=== PATIENT | female | born 2000 | race Caucasian/White ===

== ENCOUNTER 2021-02-18 01:02 | Inpatient (IN) ==
[2021-02-18 01:46] LABS: Basophils % 0.2 %; Eosinophils % 0.1 %; Hematocrit 48.3 % (35.3-44.9); Hemoglobin 16.5 g/dL (11.5-15.4); Immature Granulocytes % 0.2 % (0-4); Lymphocytes # 2.2 K/mcL (0.6-4.6); Lymphocytes % 23.4 %; Mean Corpuscular HGB Conc 34.2 g/dL (31.6-35.5); Mean Corpuscular Hemoglobin 31.8 pg (28.0-33.3); Mean Corpuscular Volume 93.1 fL (83.0-100.0); Mean Platelet Volume 12.1 fL (9.4-12.4); Monocytes % 10.7 %; Neutrophils # 6.3 K/mcL (1.6-8.9); Platelet Count 282 K/mcL (140-400); Red Blood Count 5.19 M/mcL (3.82-4.97); Red Cell Distribution Width 12.3 % (11.5-14.5); Segmented Neutrophils % 65.4 %; White Blood Count 9.6 K/mcL (4.3-11.1)
[2021-02-18 01:47] LABS: Bilirubin,Urine Negative (Negative); Blood,Urine Trace (Negative); Clarity,Urine Clear (Clear); Color,Urine Colorless (Yellow); Glucose,Urine (UA) Normal (Normal); Ketones,Urine 10 mg/dL (Negative); Leukocyte Esterase,Urine Trace (Negative); Mucus,Urine Few per lpf (None-Few); Nitrite,Urine Negative (Negative); Protein,Urine Negative (Neg-Trace); RBC,Urine 0-3 per hpf (0-3); Squamous Epithelial Cell,Urine Few per hpf (None-Few); Urobilinogen,Urine Normal (Normal); WBC,Urine 0-3 per hpf (0-3)
[2021-02-18 01:56] LABS: Amphetamine Screen,Urine Positive ng/mL (Cutoff=1000); Barbiturate Screen,Urine Negative ng/mL (Cutoff=200); Benzodiazepines Screen,Urine Negative ng/mL (Cutoff=200); Cannabinoid Screen,Urine Negative ng/mL (Cutoff = 50); Cocaine Screen,Urine Negative ng/mL (Cutoff= 300); Opiate Screen,Urine Negative ng/mL (Cutoff=300); Phencyclidine Screen,Urine Negative ng/mL (Cutoff=25)
[2021-02-18 02:05] LABS: Acetaminophen < 10 mcg/mL (10-20); BUN/Creatinine Ratio 17 (6-26); Blood Urea Nitrogen 12 mg/dL (6-20); Carbon Dioxide 20 mEq/L (23-29); Chloride 105 mEq/L (98-107); Ethanol 48 mg/dL (Less than 10); Glucose 101 mg/dL (70-105); Osmolality,Calculated 288 (280-300); Potassium 3.6 mEq/L (3.5-5.1); Salicylate < 2.5 mg/dL (15.0-30.0); Sodium 139 mEq/L (136-145); eGFR For African Americans > 60 (> 60); eGFR For Non-African Americans > 60 (> 60)
[2021-02-18 04:33] LABS: Influenza A PCR Negative (Negative); Influenza B PCR Negative (Negative); Resp. Syncytial Virus PCR Negative (Negative)
[2021-02-18 04:43] LABS: SARS-CoV-2 by PCR (In House) Negative (Negative)
[2021-02-18] MEDS ORDERED: haloperidoL 5 MG TABLET PO PRN (05:00)
[2021-02-18] MEDS ORDERED: traZODone 50 MG TABLET PO PRN (05:00)
[2021-02-18] MEDS ORDERED: *HR* LORazepam 1 MG TABLET PO PRN (05:00)
[2021-02-18] MEDS ORDERED: *HR* LORazepam 2 MG/ML VIAL IM PRN (05:00)
[2021-02-18] MEDS ORDERED: Haloperidol Lactate 5 MG/ML VIAL IM PRN (05:00)
[2021-02-18] MEDS: hydrOXYzine pamoate 25 MG CAPSULE PO PRN (06:35)
[2021-02-18] MEDS ORDERED: MOM Conc 10 ML UD.LIQ PO PRN (08:40)
[2021-02-18] MEDS ORDERED: Mag Hydrox/Al Hydrox/Simeth 30 ML UDC PO PRN (08:40)
[2021-02-18] MEDS: Acetaminophen 325 MG TABLET PO PRN ×2 (14:12→22:25)
[2021-02-19] MEDS: Acetaminophen 325 MG TABLET PO PRN (14:06)
[2021-02-20] MEDS: Acetaminophen 325 MG TABLET PO PRN ×2 (08:23→15:17)
[2021-02-20] MEDS: hydrOXYzine pamoate 25 MG CAPSULE PO PRN (21:27)
[2021-02-21 09:18] VITALS: BP 116/83; PULSE 81; TEMP 98.8; O2SAT 98
== END 2021-02-21 10:40 | disposition home or self-care (01) | DRG 885 ==
LOC: EMEROOARM 01:02 → 1ANU 04:51
PROVIDERS: ADMIT Psychiatry & Neurology Psychiatry; ATTEND Psychiatry & Neurology Psychiatry